=== PATIENT | male | born 1950 | race Caucasian/White ===

== ENCOUNTER 2019-05-01 01:52 | Inpatient (IN) | payer BC, MEDICARE ==
[2019-05-01 02:09] LABS: #Basophils 0.1 thou/uL (0.0-0.2); #Eosinphils 0.2 thou/uL (0.0-0.7); #Lymphocytes 1.5 thou/uL (1.20-3.40); #Monocytes 0.9 thou/uL (0.11-0.59); #Neutrophils 4.7 thou/uL (1.40-6.50); %Basophils 0.8 % (0.0-1.0); %Eosinophils 2.1 % (0.0-10.0); %Neutrophils 64.1 % (42.0-75.0); Hemoglobin 11.8 g/dL (14.0-18.0); Mean Corpuscular Hemoglobin 27.8 pg (27.0-31.0); Mean Corpuscular Volume 81.6 fL (78.0-98.0); Platelet Count 263 thou/uL (130-400); RBC Distribution Width 14.7 % (11.5-14.5); Red Blood Cell (RBC) Count 4.24 mill/uL (4.70-6.10); White Blood Cell (WBC) Count 7.3 thou/uL (4.8-10.8)
[2019-05-01 02:17] LABS: PTT 33.7 SEC (22.9-36.1); Prothrombin Time 12.8 SEC (12.0-14.7)
[2019-05-01 02:25] LABS: ALT (SGPT) 10 U/L (8-55); AST (SGOT) 16 U/L (5-34); Albumin 4.6 g/dL (3.4-4.8); Alkaline Phosphatase 135 U/L (40-150); Anion Gap 15 mmol/L (10-20); BUN (Urea Nitrogen) 24 mg/dL (8.4-25.7); CK (CPK) 63 U/L (30-200); Calc. Creatinine Clearance 0 mL/min (70-130); Calcium 10.8 mg/dL (7.8-10.44); Carbon Dioxide 24 mmol/L (23-31); Chloride 102 mmol/L (98-107); Estimated GFR-MDRD 37; Globulin 3.5 g/dL (2.4-3.5); Glucose 104 mg/dL (80-115); Potassium 3.9 mmol/L (3.5-5.1); Protein, Total 8.1 g/dL (5.8-8.1); Sodium 137 mmol/L (136-145)
[2019-05-01] MEDS ORDERED: Aspirin 300 MG Suppository ONE (03:06)
--- NOTE | 2019-05-01 07:26 | CT ---
PRELIMINARY REPORT/[facility]/EMERGENCY AFTER HOURS PROCEDURE: Addendum created by John Gutierrez MD on 05/01/2019 2:21 AM Central Time ([place] & [place]) THIS REPORT CONTAINS FINDINGS THAT MAY BE CRITICAL TO PATIENT CARE. The findings were verbally communicated via telephone conference with Dr. Stanton at 2:21 AM CDT on 05/01/2019. The findings were acknowledged and understood. Initial Report created on 05/01/2019 2:07 AM Central Time ([place] & [place]) EXAM: CT Head Without Contrast EXAM DATE/TIME: 05/01/2019 2:00 AM CLINICAL HISTORY: 68 years old, male; Speech disturbance; Patient HX: *level 1 stroke alert* m70, last seen normal 0130, reports slurred speech and right sided weakness TECHNIQUE: Imaging protocol: Computed tomography images of the head without contrast. Other technique: STROKE PROTOCOL was implemented. COMPARISON: No relevant prior studies available. FINDINGS: Brain: No evidence of acute large vessel infarction. No evidence of acute intracranial hemorrhage, ex traxial fluid or midline shift. Mild prominence of the cerebral sulci and ventricles. Cerebellum atrophic; otherwise, posterior fossa structures within normal limits. Ventricles: Normal. No ventriculomegaly. Bones/joints: Unremarkable. No acute fracture. Sinuses: Minimal right maxillary sinus fluid/soft tissue. Mastoid air cells: Visualized mastoid air cells are well aerated. No mastoid effusion. Soft tissues: Unremarkable. IMPRESSION: 1. No evidence of acute large vessel infarction. 2. No evidence of acute intracranial hemorrhage, extraaxial fluid or midline shift. 3. Mild cerebral atrophy. 4. Minimal right maxillary sinus fluid/soft tissue. ASSESSMENT: ASPECTS ([place] Stroke Program Early CT Score) is 10. Thank you for allowing us to participate in the care of your patient. Dictated and Authenticated by: John Gutierrez MD 05/01/2019 2:07 AM Central Time ([place] & [place]) FINAL REPORT: CT BRAIN WITHOUT CONTRAST: HISTORY: Level 1 stroke. Comparison: None. Findings: No acute hemorrhage or infarct. Moderate microvascular ischemic changes, chronic. Impression: Findings and impression are concordant with the preliminary report. Transcribed Date/Time: 05/01/2019 9:13 AM
--- NOTE | 2019-05-01 07:30 | CT ---
PRELIMINARY REPORT/[facility]/EMERGENCY AFTER HOURS PROCEDURE: Addendum created by John Gutierrez MD on 05/01/2019 2:42 AM Central Time ([place] & [place]) THIS REPORT CONTAINS FINDINGS THAT MAY BE CRITICAL TO PATIENT CARE. The findings were verbally communicated via telephone conference with Dr. Stanton at 2:21 AM CDT on 05/01/2019. The findings were acknowledged and understood. Initial Report created on 05/01/2019 2:36 AM Central Time ([place] & [place]) EXAM: CT Angiography Head Without And With Contrast EXAM DATE/TIME: 05/01/2019 2:03 AM CLINICAL HISTORY: 68 years old, male; Patient HX: *level 1 stroke alert* m70, last seen normal 0130, reports slurred speech and right sided weakness TECHNIQUE: Imaging protocol: Computed tomographic angiography images of the head without and with intravenous contrast using CT angiography protocol. Coronal and sagittal reformatted images were crea nila and reviewed. 3D rendering: MIP reconstructed images were created and reviewed. Other technique: STROKE PROTOCOL was implemented. COMPARISON: CT Brain WO Con 05/01/2019 2:00 AM FINDINGS: Right internal carotid artery: Unremarkable. Intracranial segment is patent with no significant stenosis. No aneurysm. Right anterior cerebral artery: Unremarkable. No occlusion or significant stenosis. No aneurysm. Right middle cerebral artery: Unremarkable. No occlusion or significant stenosis. No aneurysm. Right posterior cerebral artery: Unremarkable. No occlusion or significant stenosis. No aneurysm. Right vertebral artery: Unremarkable. No occlusion or significant stenosis. No aneurysm. Left internal carotid artery: Unremarkable. Intracranial segment is patent with no significant stenosis. No aneurysm. Left anterior cerebral artery: Unremarkable. No occlusion or significant stenosis. No aneurysm. Left middle cerebral artery: Unremarkable. No occlusion or significant stenosis. No aneurysm. Left posterior cerebral artery: Unremarkable. No occlusion or significant stenosis. No aneurysm. Left vertebral artery: Unremarkable. No occlusion or significant stenosis. No aneurysm. Basilar artery: Unremarkable. No occlusion or significant stenosis. No aneurysm. HEAD: Brain: Mild prominence of the cerebral sulci and ventricles. Impression new. No hemorrhage. No significant white matter disease. No edema. Ventricles: Normal. No ventriculomegaly. Bones/joints: Unremarkable. No acute fracture. Sinuses: Visualized sinuses are normal. No fluid levels. Mastoid air cells: Visualized mastoids are normal. No mastoid effusion. Soft tissues: Unremarkable. IMPRESSION: No large vessel occlusion or significant stenosis. No aneurysm. No evidence of acute large vessel infarction. No evidence of acute intracranial hemorrhage, extraaxial fluid or midline shift. Mild cerebral atrophy. ASSESSMENT: ASPECTS ([place] Stroke Program Early CT Score) is 10. EXAM: CT Angiography Neck With Contrast EXAM DATE/TIME: 05/01/2019 2:03 AM CLINICAL HISTORY: 68 years old, male; Patient HX: *level 1 stroke alert* m70, last seen normal 0130, reports slurred speech and right sided weakness TECHNIQUE: Imaging protocol: Axial computed tomographic angiography images of the neck with intravenous contrast using CT angiography protocol. Coronal and sagittal reformatted images were created and reviewed. 3D rendering: MIP reconstructed images were created and reviewed. COMPARISON: CT Brain WO Con 05/01/2019 2:00 AM FINDINGS: VASCULATURE: Right common carotid artery: Unremarkable. No stenosis. No dissection or occlusion. Right internal carotid artery: Mild atherosclerotic calcification involving proximal right ICA with l ess than 50% narrowing/stenosis. Right external carotid artery: Unremarkable. No occlusion or stenosis of the origin. Right vertebral artery: Unremarkable. No stenosis. No dissection or occlusion. Left common carotid artery: Unremarkable. No stenosis. No dissection or occlusion. Left internal carotid artery: Mild atherosclerotic calcification involving proximal left ICA with les s than 50% narrowing/stenosis. Left external carotid artery: Unremarkable. No occlusion or stenosis of the origin. Left vertebral artery: Unremarkable. No stenosis. No dissection or occlusion. Other vasculature: Left CVL tip in SVC. NECK: Bones/joints: Multilevel cervical spondylosis. Mild rightward curvature lower cervical spine. Soft tissues: Normal. No significant soft tissue swelling. IMPRESSION: No significant ICA stenosis. No dissection or occlusion. Mild atherosclerotic calcification involving proximal bilateral ICAs with less than 50% narrowing/stenosis. COMMENT: Reference per NASCET criteria for degree of stenosis: Mild: less than 50% stenosis. Moderate: 50-69% stenosis. Severe: 70-94% stenosis. Near occlusion: 95-99% stenosis. Thank you for allowing us to participate in the care of your patient. Dictated and Authenticated by: John Gutierrez MD 05/01/2019 2:36 AM Central Time ([place] & [place]) FINAL REPORT: CTA ANGIO HEAD WITH AND WITHOUT CONTRAST CT ANGIOGRAM NECK WITH CONTRAST: HISTORY: Stroke alert. COMPARISON: None. Findings: CT angiogram of the head and neck was performed after the intravenous administration of contrast. 3-D rendering provided. IMPRESSION: Findings and impression are concordant with the preliminary report. Transcribed Date/Time: 05/01/2019 9:25 AM
[2019-05-01 08:14] LABS: Cardiac Risk 6.8 (Less than 4.5)
[2019-05-01 10:56] VITALS: BMI 26.6
[2019-05-01 12:41] LABS: Hemoglobin A1c 5.4 % (4.0-6.0)
--- NOTE | 2019-05-01 12:42 | MRI ---
MRI OF BRAIN WITHOUT CONTRAST: 05/01/19 HISTORY: Speech disturbance, slurred speech, right sided weakness. FINDINGS: Correlation is made with the CT scan from earlier today. There is a small acute left MCA infarction with restricted diffusion and low signal on ADC maps. No h emorrhage, midline shift or abnormal extra-axial fluid collections are seen. There is focal hyperinte nsity in the right anterior periventricular white matter on FLAIR and T2 images consistent with old i nfarction. The ventricular size is appropriate and the basilar cisterns are patent. There is a mucous retention cyst versus polyp in the right maxillary sinus. IMPRESSION: Acute small left MCA infarction. POS: TPC
[2019-05-01] MEDS ORDERED: ISOVUE-370 76%-LOCM 1 ML ONE (15:57)
[2019-05-01] MEDS: Heparin 5,000 UNITS/ML VIAL SC SCH (20:53)
[2019-05-01] MEDS: Ferrous Sulfate 325 MG TAB PO SCH (20:53)
[2019-05-01] MEDS ORDERED: Atorvastatin Calcium 40 MG TAB PO SCH (21:00)
[2019-05-01] MEDS ORDERED: Rosuvastatin 10 MG TAB PO SCH (21:00)
--- NOTE | 2019-05-01 21:17 | CON ---
DATE OF CONSULTATION: 05/01/2019 IMPRESSION: 1. 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 2. Hypertension. 3. Diabetes. 4. Hypothyroidism. 5. Hyperlipidemia. PLAN: 1. Continue aspirin. 2. Add a statin. 3. Review echocardiogram. HISTORY OF PRESENT ILLNESS: Mr. Siu is a 68-year-old man who presented with slurred speech. He had no lateralized weakness or numbness. His MRI of the brain revealed a left MCA distribution stroke that was new. CT angiogram showed around 50% stenosis in both right and left carotids. His cholesterol ratio was 6.8. His symptoms improved somewhat. He does not smoke. PAST MEDICAL HISTORY: As listed above. ALLERGIES: NONE REPORTED. FAMILY HISTORY: Noncontributory. MEDICATION LIST: Reviewed. REVIEW OF SYSTEMS: A 10-system review of systems is unremarkable. PHYSICAL EXAMINATION: VITAL SIGNS: Have been stable. He is afebrile. HEENT: Pupils equal and reactive. Conjunctivae clear. Oropharynx clear. NECK: Supple. EXTREMITIES: No cyanosis, clubbing, or edema. NEUROLOGIC: He is alert and cooperative. There is some mild dysarthria present. There is a right facial droop of subtle quality. No focal weakness or numbness was elicited. No tremor. Dysmetria was present. He can walk independently. SUMMARY: A 68-year-old gentleman who presents with a thrombus in the left MCA distribution. He has some stenosis in the carotids that is at a nonsurgical level. His hyperlipidemia needs to be addressed. His echocardiogram is pending. We have to follow up with him as an outpatient. Job ID: [id number]
--- NOTE | 2019-05-02 01:13 | HP ---
CHIEF COMPLAINT: Right-sided facial droop. HISTORY OF PRESENT ILLNESS: The patient is 68-year-old male, who presents to the hospital with complaints of right-sided facial droop and slurred speech. The patient stated that he went to bed around 10:30 p.m., woke up around 1:20 a.m., felt that he had some generalized weakness and some weakness to his right upper extremity, and he also noticed right-sided facial droop and some slurred speech. He woke his up who also confirmed the slurring of speech and so, he was brought into the ER for further evaluation. Due to the unknown time of his symptoms, he was not given any tPA. In the ED, the patient underwent CT head and CTA which did not show any acute abnormalities and so, he was admitted to the hospital for further evaluation. PAST MEDICAL HISTORY: He has a history of diabetes. He has a history of hypertension and hyperlipidemia. He is not on any statin due to severe muscle aches and weakness. He has had a history of remote atrial fibrillation in the past and he has been to a information systems security manager, had a loop monitor for about 2 weeks and was cleared for atrial fibrillation and this contributed most likely to medication which was Claritin per patient. He also has a history of colorectal cancer status post radiation and chemotherapy with some spots on his spine and pelvis according to the patient's family. He has never had any strokes. PAST SURGICAL HISTORY: He has had partial colectomy with colostomy. ALLERGIES: NO KNOWN DRUG ALLERGIES. MEDICATIONS: He is on: 1. Metoprolol 25 mg daily. 2. Lisinopril 20 mg daily. 3. Metformin 850 b.i.d. 4. Iron 325 daily. 5. Celexa 20 mg daily. 6. Aspirin 81 mg daily. 7. Levothyroxine unknown dose daily. REVIEW OF SYSTEMS: All negative except for the ones mentioned above in the HPI. PHYSICAL EXAMINATION: VITAL SIGNS: Temperature of 98.2, 62, 20, 92% on room air, 135/77. GENERAL: He is awake, alert, and oriented x3. Does not appear in distress. HEENT: Normocephalic, atraumatic. No lymphadenopathy noted. Pupils are equal and reactive to light. CV: S1 and S2 present. No murmurs, rubs, or gallops. Regular rate and rhythm. LUNGS: Clear to auscultation. No rhonchi or wheezes noted. ABDOMEN: Soft and nontender. Bowel sounds are present x2. EXTREMITIES: No edema. Pedal pulses present x2. Neurovascular morales, he does have right-sided facial droop. He does have slurred speech. Otherwise, his [id number], [id number] is 5/5 bilateral upper extremity strength and bilateral lower extremity strength. Cerebellum test is also intact and the patient has been ambulating without any difficulties. SKIN: No cuts, lesions, or bruises noted. FAMILY HISTORY: Mother had hypertension, cardiac issues, and diabetes. Father was alcoholic. SOCIAL HISTORY: The patient denies any smoking, drug use, or drinking history. He is a full code. Lives with his . LABORATORY RESULTS: WBCs of 7.3, hemoglobin of 11.8, hematocrit of 34.6, platelets of 263. Chemistry; sodium of 137, potassium of 3.9, BUN of 24, creatinine 1.84, calcium of 10.8. His hemoglobin A1c is 5.4. His triglycerides were 213. Cholesterol was 219. His LDL was 144. His HDL is 32. As I mentioned, the CT head was negative and CTA did not show any acute stenosis. It just showed mild atherosclerotic disease. ASSESSMENT AND PLAN: The patient is 68-year-old male, who presents to the hospital with slurred speech. 1. Slurred speech, most likely secondary to stroke versus transient ischemic attack. The patient continues to still have the droopiness of his right side of the face and some slurred speech. We will get an MRI of the brain and also consult Neurology. I will add Plavix to his dose of medication and also I will put him on statin. For better, we will try different types of statin with low dose to see if he can tolerate it. Given his history of previous atrial fibrillation, I am not hesitant to most likely start him on a blood thinner once we get the MRI back and once he has been seen by Neurology. I have also ordered an echocardiogram. 2. Diabetes. We will check hemoglobin A1c and continue his home medications. 3. History of hypertension. We will continue his home medications. 4. Deep venous thrombosis prophylaxis. We will put the patient on SCDs. Job ID: [id number]
[2019-05-02] MEDS: Levothyroxine Sodium 100 MCG TAB PO SCH (05:08)
--- NOTE | 2019-05-02 06:02 | PDOC.EVN ---
Event Note - Event Note Event Note: spoke with cardiology in regards to pt's hx of one episode of afib in the past which was thought to be medication induced. He has a small Left MCA stroke and his cta not acute abnormalities. given his hx of one episode of afib and his CHADVAS score i would start pt on eliquis and continue asa if ok with neurolgy.
[2019-05-02] MEDS ORDERED: Rosuvastatin 10 MG TAB PO SCH (07:55)
[2019-05-02] MEDS ORDERED: Dextrose 50% Abboject 50 ML SYRINGE SLOW IVP PRN (07:55)
[2019-05-02] MEDS ORDERED: Dextrose 5% in Water 1,000 ML IV PRN (07:55)
[2019-05-02] MEDS ORDERED: HumaLOG 300 UNITS/3 ML VIAL SC PRN ×2 (07:55)
[2019-05-02] MEDS: Lisinopril 20 MG TAB PO SCH (09:56)
[2019-05-02] MEDS: Aspirin 81 mg Enteric Coated Tablet PO SCH (09:56)
[2019-05-02] MEDS: Citalopram 20 MG TAB PO SCH (09:56)
[2019-05-02] MEDS: Clopidogrel Bisulfate 75 MG TAB PO SCH (09:56)
[2019-05-02] MEDS: Ferrous Sulfate 325 MG TAB PO SCH ×2 (09:57→21:17)
[2019-05-02] MEDS: Heparin 5,000 UNITS/ML VIAL SC SCH ×2 (09:58→21:17)
--- NOTE | 2019-05-02 11:55 | PDOC.HOSPP ---
- Subjective Encounter Date: 05/02/19 Encounter Time: 07:00 Subjective: Patient seen and examined. No new complaints. No overnight events pt has nasal congestion today, he is overall doing well - Objective Vital Signs & Weight: Vital Signs (12 hours) Temp Pulse Pulse Pulse Resp BP BP 05/02/19 11:47 97.7 F 65 16 05/02/19 09:56 142/81 H 05/02/19 09:37 79 78 159/77 H 05/02/19 08:04 98.2 F 86 18 05/02/19 04:00 97.7 F 97 16 BP BP BP Pulse Ox 05/02/19 11:47 136/74 94 L 05/02/19 09:56 05/02/19 09:37 162/83 H 05/02/19 08:04 142/81 H 91 L 05/02/19 04:00 133/81 90 L Weight Weight 191 lb 3.2 oz I&O: 05/01/19 05/02/19 05/03/19 06:59 06:59 06:59 Intake Total 660 Balance 660 Result Diagrams: 05/01/19 02:01 05/01/19 02:01 Additional Labs: Accuchecks 05/02/19 05/01/19 05/01/19 05:48 20:09 16:45 POC Glucose 115 H 142 H 95 Radiology Reviewed by me: Yes EKG Reviewed by me: Yes ROS - Review of Systems Constitutional: denies: fever, chills, sweats, weakness, malaise, other Eyes: denies: pain, vision change, conjunctivae inflammation, eyelid inflammation, redness, other ENT: reports: nose congestion. denies: ear pain, ear discharge, nose pain, nose discharge, mouth pain, mouth swelling, throat pain, throat swelling, other Respiratory: denies: cough, dry, shortness of breath, hemoptysis, SOB with excertion, pleuritic pain, sputum, wheezing, other Cardiovascular: denies: chest pain, palpitations, orthopnea, paroxysmal noc. dyspnea, edema, light headedness, other Gastrointestinal: denies: nausea, vomitting, abdominal pain, diarrhea, constipation, melena, hematochezia, other Genitourinary: denies: dysuria, frequency, incontinence, hematuria, retention, other Musculoskeletal: denies: neck pain, shoulder pain, arm pain, back pain, hand pain, leg pain, foot pain, other Skin: denies: rash, lesions, radha, bruising, other - Medication Medications: Active Medications Generic Name Dose Route Start Last Admin Trade Name Anselmoq PRN Reason Stop Dose Admin Aspirin 81 mg 05/02/19 09:00 05/02/19 09:56 Ecotrin PO 81 mg DAILY GALDINO Administration Citalopram Hydrobromide 20 mg 05/02/19 09:00 05/02/19 09:56 Celexa PO 20 mg DAILY GALDINO Administration Clopidogrel Bisulfate 75 mg 05/02/19 09:00 05/02/19 09:56 Plavix PO 75 mg DAILY GALDINO Administration Ferrous Sulfate 325 mg 05/01/19 21:00 05/02/19 09:57 Feosol PO 325 mg BID GALDINO Administration Heparin Sodium (Porcine) 5,000 units 05/01/19 21:00 05/02/19 09:58 Heparin SC 5,000 units Q12HR GALDINO Administration Levothyroxine Sodium 100 mcg 05/02/19 06:00 05/02/19 05:08 Synthroid PO 100 mcg 0600 GALDINO Administration Lisinopril 20 mg 05/02/19 09:00 05/02/19 09:56 Zestril PO 20 mg DAILY GALDINO Administration Metoprolol Succinate 25 mg 05/02/19 09:00 05/02/19 09:56 Toprol Xl PO 25 mg DAILY GALDINO Administration - Exam NAD, awake alert Eye: PERRL, anicteric sclera ENT: normocephalic atraumatic, no oropharyngeal lesions Neck: supple, symmetric, no JVD Heart: RRR, no murmur, no gallops Respiratory: CTAB, no wheezes, no rales, no ronchi Gastrointestinal: soft, non-tender, non-distended, normal bowel sounds Extremities: no cyanosis, no clubbing, no edema Skin: normal turgor, no lesions Neurological: normal sensation to touch, no focal deficits, facial droop Musculoskeletal: normal tone, normal strength Psychiatric: normal affect, normal behavior, A&O x 3 Hosp A/P (1) Acute ischemic left MCA stroke Code(s): I63.512 - CEREB INFRC D/T UNSP OCCLS OR STENOS OF LEFT MID CEREB ART Status: Acute (2) Anemia, normocytic normochromic Code(s): D64.9 - ANEMIA, UNSPECIFIED Status: Chronic (3) Diabetes type 2, controlled Code(s): E11.9 - TYPE 2 DIABETES MELLITUS WITHOUT COMPLICATIONS Status: Chronic (4) Dyslipidemia Code(s): E78.5 - HYPERLIPIDEMIA, UNSPECIFIED Status: Chronic (5) Hypertension Code(s): I10 - ESSENTIAL (PRIMARY) HYPERTENSION Status: Chronic (6) Hypothyroidism Code(s): E03.9 - HYPOTHYROIDISM, UNSPECIFIED Status: Chronic - Plan old records reviewed/req, plan discussed w/ family, PT/OT stroke team evaluation home medication reconciled consider nestor on discharge, in that case DC plavix and continue asa add flonase nasal spray for nasal congestion medication reviewed as above symptomatic treatment echo today will consider DC tomorrow to home
[2019-05-02] MEDS: Fluticasone Propionate Nasal Spray 16 gm Bottle NASAL SCH (13:05)
[2019-05-02] MEDS ORDERED: Rosuvastatin 20 MG TAB PO SCH (21:00)
[2019-05-03 04:41] LABS: #Eosinphils 0.2 thou/uL (0.0-0.7); #Lymphocytes 0.8 thou/uL (1.20-3.40); #Monocytes 0.5 thou/uL (0.11-0.59); #Neutrophils 3.8 thou/uL (1.40-6.50); %Basophils 0.4 % (0.0-1.0); %Eosinophils 4.2 % (0.0-10.0); %Lymphocytes 14.8 % (21.0-51.0); %Monocytes 10.2 % (0.0-10.0); %Neutrophils 70.4 % (42.0-75.0); Hemoglobin 11.2 g/dL (14.0-18.0); Mean Corpuscular HGB CONC 33.4 g/dL (32.0-36.0); Mean Corpuscular Hemoglobin 27.6 pg (27.0-31.0); Mean Corpuscular Volume 82.8 fL (78.0-98.0); Platelet Count 219 thou/uL (130-400); RBC Distribution Width 14.5 % (11.5-14.5); Red Blood Cell (RBC) Count 4.07 mill/uL (4.70-6.10); White Blood Cell (WBC) Count 5.3 thou/uL (4.8-10.8)
[2019-05-03 05:00] LABS: Anion Gap 15 mmol/L (10-20); BUN (Urea Nitrogen) 23 mg/dL (8.4-25.7); Calc. Creatinine Clearance 50 mL/min (70-130); Calcium 10.2 mg/dL (7.8-10.44); Carbon Dioxide 23 mmol/L (23-31); Chloride 105 mmol/L (98-107); Estimated GFR-MDRD 41; Glucose 97 mg/dL (80-115); Potassium 3.8 mmol/L (3.5-5.1); Sodium 139 mmol/L (136-145)
[2019-05-03] MEDS: Levothyroxine Sodium 100 MCG TAB PO SCH (05:14)
[2019-05-03 07:39] VITALS: BP 157/72; TEMP 98
[2019-05-03] MEDS: Heparin 5,000 UNITS/ML VIAL SC SCH (08:56)
[2019-05-03] MEDS: Fluticasone Propionate Nasal Spray 16 gm Bottle NASAL SCH (08:57)
[2019-05-03] MEDS: Ferrous Sulfate 325 MG TAB PO SCH (08:58)
[2019-05-03] MEDS: Citalopram 20 MG TAB PO SCH (08:58)
[2019-05-03] MEDS: Aspirin 81 mg Enteric Coated Tablet PO SCH (08:58)
[2019-05-03] MEDS: Lisinopril 20 MG TAB PO SCH (08:59)
[2019-05-03] MEDS: Clopidogrel Bisulfate 75 MG TAB PO SCH (09:00)
[2019-05-03] MEDS ORDERED: Fluticasone Propionate Nasal Spray 16 gm Bottle NASAL SCH (09:00)
--- NOTE | 2019-05-03 11:06 | DIS ---
DATE OF ADMISSION: 05/01/2019 DATE OF DISCHARGE: 05/03/2019 PRIMARY CARE PHYSICIAN: Dr. Chato Black. DISCHARGE DISPOSITION: Home with home health. PRIMARY DISCHARGE DIAGNOSIS: Left MCA stroke. SECONDARY DISCHARGE DIAGNOSES: 1. Hypothyroidism. 2. Hypertension. 3. Dyslipidemia. 4. Diabetes, type 2. 5. Normocytic normochromic anemia. PRIMARY PROCEDURE/OPERATION: None. RADIOLOGICAL INVESTIGATION: CT brain on admission showed no acute process. CT [place] angiography, negative for any occlusion. MRI brain showed left MCA territory small infarct. Echocardiography showed normal EF without any vegetation or clot. SIGNIFICANT LABORATORY DATA: WBC 5.3, hemoglobin 11.2, platelets 219. INR 1.0. BMP; sodium 139, potassium 3.8, BUN 23, creatinine 1.68, calcium 10.2. LDL 144. LFT, normal. Hemoglobin A1c 5.4. DISCHARGE MEDICATIONS: 1. Aspirin 81 mg p.o. daily. 2. Plavix 75 mg p.o. daily. 3. Celexa 20 mg p.o. daily. 4. Ferrous sulfate 325 mg b.i.d. 5. Synthroid 100 mcg p.o. daily. 6. Lisinopril 20 mg daily. 7. Metformin 850 mg b.i.d. 8. Metoprolol-XL 25 mg p.o. daily. 9. Crestor 20 mg p.o. at bedtime. CONTRAINDICATIONS: Please note that Dr. García wrote event note that the patient had one episode of atrial fibrillation, but I could not see any evidence of in our hospital record, as well as the patient does not remember any episode of atrial fibrillation in the past. The patient does not report any previous history of atrial fibrillation, and while in our hospital, we did not see any evidence of atrial fibrillation as well and that is why we decided to send him on dual antiplatelet therapy. This patient will need outpatient Cardiology followup and possibly Holter monitoring, and if we have confirmed evidence of atrial fibrillation, then the patient will benefit from a chronic anticoagulation therapy. At this point, the patient does not need any chronic anticoagulation. CODE STATUS: Full code. INPATIENT POULTRY DRESSER: Dr. Clifton Flaherty, neurologist was following while in hospital. TEST RESULTS PENDING ON DISCHARGE: None. ALLERGIES: NO KNOWN DRUG ALLERGIES. DISCHARGE PLAN: Posthospital, the patient is instructed to follow up with primary care physician, and primary care physician requested to give referral to Cardiology for possible evaluation with Holter monitoring to rule out any arrhythmia. The patient is also instructed to follow up with Neurology as well. HOSPITAL COURSE: A 68-year-old male with above-mentioned medical problems, who was admitted by Dr. Janine García, please see her H and P for further details. The patient was presented with acute onset of slurred speech and facial droop on the right side without any weakness or paresthesia. Initial evaluation in the emergency room with CT brain and CT [place] was negative. The patient was admitted to Stroke Floor. We did MRI, which showed acute left MCA small infarct. Neurology saw this patient and they recommended to continue antiplatelet therapy. The patient's medication will be continued while in the hospital as well as on discharge. He did not have any motor or sensory weakness while in the hospital and he was doing wonderful with Physical Therapy, Occupational Therapy, and a Stroke Team evaluation. At this point, the patient is being discharged home with the above-mentioned medication. His telemetry remained unremarkable without any arrhythmia. Echocardiography, unremarkable. We have discussed with the patient and family member about followup with Cardiology for Holter monitoring to rule out any arrhythmias. At this point, the patient is medically stable for discharge home with home health. I have seen and examined the patient at bedside today. PHYSICAL EXAMINATION: VITAL SIGNS: Currently temperature 98.0, pulse 56, blood pressure 157/72. Weight 191 pounds. Saturation 96% on room air. GENERAL: The patient is currently alert, awake, in no acute distress. Mild facial droop noted. LUNGS: Clear to auscultation without any rhonchi or rales. CARDIAC: S1 and S2, regular without any murmur. No gallop. No rub. ABDOMEN: Soft and benign without any tenderness. EXTREMITIES: No edema. NEUROLOGIC: Nonfocal examination other than mild facial droop noted. All new medication prescription sent to his pharmacy. Job ID: [id number]
== END 2019-05-03 11:51 | disposition home health service (06) | DRG 66 ==
LOC: ERS 01:52 → ERHOLD 02:40 → 2SE 09:56 → OBSVTOIN 14:42
PROVIDERS: ADMIT Family Medicine; ATTEND Family Medicine
DX: I63.512 Cerebral infarction due to unspecified occlusion or stenosis of left middle cerebral artery (principal); R47.01 Aphasia; R29.810 Facial weakness; R29.705 NIHSS score 5; I10 Essential (primary) hypertension; E03.9 Hypothyroidism, unspecified; I48.91 Unspecified atrial fibrillation; D64.9 Anemia, unspecified; E11.9 Type 2 diabetes mellitus without complications; E78.5 Hyperlipidemia, unspecified; Z90.49 Acquired absence of other specified parts of digestive tract; Z92.3 Personal history of irradiation; Z92.21 Personal history of antineoplastic chemotherapy; Z79.84 Long term (current) use of oral hypoglycemic drugs; Z85.038 Personal history of other malignant neoplasm of large intestine; Z93.3 Colostomy status; Z79.899 Other long term (current) drug therapy; Z79.82 Long term (current) use of aspirin; R47.1 Dysarthria and anarthria
CPT/HCPCS: 36415; 36416; 70450; 70496; 70498; 70551; 80048; 80053; 80061; 82550; 83036; 84484; 85025; 85610; 85730; 93005; 93306; J1644; Q9966

== ENCOUNTER 2022-04-07 11:45 | Outpatient (CLI) | payer BC | END 2022-04-07 11:46 | disposition home or self-care (01) | LOC: PET 11:45 | PROVIDERS: ATTEND Internal Medicine Hematology & Oncology | DX: C43.39 Malignant melanoma of other parts of face (principal); Z85.038 Personal history of other malignant neoplasm of large intestine | CPT/HCPCS: 78816; A9552 ==

== ENCOUNTER 2022-10-30 09:09 | Outpatient (CLI) | payer BC ==
[2022-10-30] MEDS ORDERED: Iopamidol-370 76% 500 ML 1 ML ONE (10:26)
== END 2022-10-30 09:10 | disposition home or self-care (01) ==
LOC: BICCT 09:09
PROVIDERS: ATTEND Internal Medicine Hematology & Oncology
DX: C43.39 Malignant melanoma of other parts of face (principal); Z85.038 Personal history of other malignant neoplasm of large intestine
CPT/HCPCS: 71260; 74177

== ENCOUNTER 2023-04-27 08:32 | Outpatient (CLI) | payer BC ==
[2023-04-27] MEDS ORDERED: Iopamidol-370 76% 500 ML MDV (1 ML CHARGE) ONE (13:57)
== END 2023-04-27 08:33 | disposition home or self-care (01) ==
LOC: BICCT 08:32
PROVIDERS: ATTEND Internal Medicine Hematology & Oncology
DX: C43.39 Malignant melanoma of other parts of face (principal); C18.9 Malignant neoplasm of colon, unspecified
CPT/HCPCS: 71260; 74177; 82565; Q9967

== ENCOUNTER 2024-05-06 07:39 | Outpatient (CLI) | payer BC ==
[2024-05-06] MEDS ORDERED: Iopamidol 370 76% 100 ML VIAL ONE (13:01)
== END 2024-05-06 07:40 | disposition home or self-care (01) ==
LOC: BICCT 07:39
PROVIDERS: ATTEND Internal Medicine Hematology & Oncology
DX: C43.39 Malignant melanoma of other parts of face (principal)
CPT/HCPCS: 71260; 74177; 82565; Q9967

== ENCOUNTER 2024-09-06 18:07 | Inpatient (IN) | payer BC, MEDICARE ==
[~2024-09-06 18:07] MED LIST: Iopamidol-370 76% 500 ML MDV (1 ML CHARGE) ONE
[2024-09-06 18:40] LABS: #Basophils 0.04 10x3/uL (0.0-0.2); %Basophils 0.6 % (0.0-1.0); %Eosinophils 3.4 % (0.0-10.0); %Lymphocytes 15.5 % (21.0-51.0); %Monocytes 8.1 % (0.0-10.0); %Neutrophils 72.2 % (42.0-75.0); Hemoglobin 12.1 g/dL (14.0-18.0); Mean Corpuscular HGB CONC 32.7 g/dL (32.0-36.0); Mean Corpuscular Hemoglobin 29.7 pg (27.0-31.0); Mean Corpuscular Volume 90.9 fL (78.0-98.0); Mean Platelet Volume 10.8 fL (7.4-10.4); Platelet Count 199 10x3/uL (130-400); Red Blood Cell (RBC) Count 4.07 mill/uL (4.70-6.10)
[2024-09-06] MEDS ORDERED: dilTIAZem 125 MG/25 ML SDV ONE (18:59)
[2024-09-06] MEDS ORDERED: dilTIAZem 25 MG/5 ML VIAL ONE (18:59)
[2024-09-06 19:01] LABS: ALT (SGPT) 17 U/L (8-55); AST (SGOT) 18 U/L (5-34); Albumin 4.1 g/dL (3.4-4.8); Alkaline Phosphatase 104 U/L (40-110); Anion Gap 15 mmol/L (10-20); BUN (Urea Nitrogen) 31 mg/dL (8.4-25.7); Calc. Creatinine Clearance 0 mL/min (70-130); Calcium 9.3 mg/dL (7.8-10.44); Carbon Dioxide 21 mmol/L (23-31); Chloride 106 mmol/L (98-107); Estimated GFR 30; Globulin 3.4 g/dL (2.4-3.5); Glucose 197 mg/dL (83-110); Magnesium 1.9 mg/dL (1.6-2.6); Potassium 4.2 mmol/L (3.5-5.1); Protein, Total 7.5 g/dL (5.8-8.1); Sodium 138 mmol/L (136-145)
[2024-09-06 19:02] LABS: Troponin I 0.016 ng/mL (< 0.028)
[2024-09-06] MEDS ORDERED: Furosemide 40 MG (4 mL) VIAL ONE (20:17)
[2024-09-06 20:19] LABS: INR-International Normal Ratio 1.2; PTT 34.5 sec (22.9-36.1); Prothrombin Time 15.1 sec (12.0-14.7)
[2024-09-06] MEDS ORDERED: Senokot S 8.6-50 MG TAB PO PRN (21:18)
[2024-09-06] MEDS ORDERED: Acetaminophen 325 MG TAB PO PRN (21:18)
[2024-09-06] MEDS ORDERED: Glucagon 1 MG/ML KIT IM PRN (21:27)
[2024-09-06] MEDS ORDERED: Dextrose 50% Abboject 50 ML SYRINGE SLOW IVP PRN (21:27)
[2024-09-06] MEDS ORDERED: Dextrose 5% in Water 1,000 ML IV PRN (21:27)
[2024-09-06 22:15] LABS: Troponin I Less than 0.010 ng/mL (< 0.028)
[2024-09-06 23:45] VITALS: BMI 30.2
[2024-09-07] MEDS ORDERED: Apixaban 2.5 MG TAB PO SCH (00:15)
[2024-09-07] MEDS: Apixaban 5 MG TAB PO SCH ×2 (00:18→09:27)
[2024-09-07 01:40] LABS: Troponin I 0.014 ng/mL (< 0.028)
[2024-09-07] MEDS: Magnesium 2 GM/50 ML(in water) 2 GM in Premix 1 BAG IVPB SCH (03:14)
[2024-09-07 04:10] LABS: #Basophils 0.03 10x3/uL (0.0-0.2); %Basophils 0.4 % (0.0-1.0); %Eosinophils 2.2 % (0.0-10.0); %Lymphocytes 12.8 % (21.0-51.0); %Monocytes 9.8 % (0.0-10.0); %Neutrophils 74.1 % (42.0-75.0); Hematocrit 33.2 % (42.0-52.0); Hemoglobin 10.8 g/dL (14.0-18.0); Mean Corpuscular HGB CONC 32.5 g/dL (32.0-36.0); Mean Corpuscular Hemoglobin 29.4 pg (27.0-31.0); Mean Corpuscular Volume 90.5 fL (78.0-98.0); Mean Platelet Volume 10.7 fL (7.4-10.4); Platelet Count 188 10x3/uL (130-400); RBC Distribution Width 14.1 % (11.5-14.5); Red Blood Cell (RBC) Count 3.67 mill/uL (4.70-6.10)
[2024-09-07 04:43] LABS: Anion Gap 14 mmol/L (10-20); BUN (Urea Nitrogen) 29 mg/dL (8.4-25.7); Calc. Creatinine Clearance 43 mL/min (70-130); Calcium 9.3 mg/dL (7.8-10.44); Carbon Dioxide 20 mmol/L (23-31); Chloride 108 mmol/L (98-107); Estimated GFR 34; Glucose 185 mg/dL (83-110); Potassium 3.7 mmol/L (3.5-5.1); Sodium 138 mmol/L (136-145)
[2024-09-07 07:22] LABS: Troponin I Less than 0.010 ng/mL (< 0.028)
[2024-09-07] MEDS: Famotidine 20 MG TAB PO SCH (09:27)
[2024-09-08 08:26] LABS: #Basophils 0.03 10x3/uL (0.0-0.2); %Basophils 0.5 % (0.0-1.0); %Eosinophils 3.1 % (0.0-10.0); %Lymphocytes 12.7 % (21.0-51.0); %Monocytes 9.8 % (0.0-10.0); %Neutrophils 73.6 % (42.0-75.0); Hematocrit 34.9 % (42.0-52.0); Hemoglobin 11.5 g/dL (14.0-18.0); Mean Corpuscular Volume 91.1 fL (78.0-98.0); Mean Platelet Volume 10.8 fL (7.4-10.4); Platelet Count 189 10x3/uL (130-400); RBC Distribution Width 14.1 % (11.5-14.5); Red Blood Cell (RBC) Count 3.83 mill/uL (4.70-6.10)
[2024-09-08 08:45] LABS: Anion Gap 15 mmol/L (10-20); BUN (Urea Nitrogen) 26 mg/dL (8.4-25.7); Calc. Creatinine Clearance 51 mL/min (70-130); Calcium 9.5 mg/dL (7.8-10.44); Carbon Dioxide 19 mmol/L (23-31); Chloride 107 mmol/L (98-107); Estimated GFR 42; Glucose 150 mg/dL (83-110); Sodium 137 mmol/L (136-145)
[2024-09-08] MEDS: dilTIAZem 30 MG TAB PO SCH (14:33)
[2024-09-08] MEDS: Insulin Lispro 100 UNIT/ML 10 ML VIAL SC PRN (17:56)
[2024-09-08] MEDS: dilTIAZem 125 MG in Sodium Chloride 0.9% 100 ML IVPB SCH (18:05)
[2024-09-09 04:29] LABS: #Basophils 0.05 10x3/uL (0.0-0.2); %Basophils 0.8 % (0.0-1.0); %Lymphocytes 11.8 % (21.0-51.0); %Monocytes 10.8 % (0.0-10.0); %Neutrophils 72.3 % (42.0-75.0); Hematocrit 36.2 % (42.0-52.0); Mean Corpuscular HGB CONC 30.4 g/dL (32.0-36.0); Mean Corpuscular Hemoglobin 29.1 pg (27.0-31.0); Mean Corpuscular Volume 95.8 fL (78.0-98.0); Mean Platelet Volume 10.5 fL (7.4-10.4); Platelet Count 174 10x3/uL (130-400); RBC Distribution Width 14.1 % (11.5-14.5); Red Blood Cell (RBC) Count 3.78 mill/uL (4.70-6.10)
[2024-09-09 04:48] LABS: Anion Gap 15 mmol/L (10-20); BUN (Urea Nitrogen) 28 mg/dL (8.4-25.7); Calc. Creatinine Clearance 50 mL/min (70-130); Calcium 9.3 mg/dL (7.8-10.44); Carbon Dioxide 17 mmol/L (23-31); Chloride 108 mmol/L (98-107); Estimated GFR 42; Glucose 152 mg/dL (83-110); Sodium 136 mmol/L (136-145)
[2024-09-09] MEDS: dilTIAZem CD 180 MG CAP PO SCH (08:48)
[2024-09-09 12:06] VITALS: BP 140/87; TEMP 97.8
== END 2024-09-09 14:36 | disposition home or self-care (01) | DRG 309 ==
LOC: ERS 18:07 → 2NO 20:00
PROVIDERS: ADMIT Internal Medicine; ATTEND Family Medicine
DX: I48.91 Unspecified atrial fibrillation (principal); I13.0 Hypertensive heart and chronic kidney disease with heart failure and stage 1 through stage 4 chronic kidney disease, or unspecified chronic kidney disease; I24.9 Acute ischemic heart disease, unspecified; E11.22 Type 2 diabetes mellitus with diabetic chronic kidney disease; E03.9 Hypothyroidism, unspecified; N18.9 Chronic kidney disease, unspecified; R59.1 Generalized enlarged lymph nodes; E78.5 Hyperlipidemia, unspecified; R00.1 Bradycardia, unspecified; F32.A Depression, unspecified; Z85.038 Personal history of other malignant neoplasm of large intestine; Z90.49 Acquired absence of other specified parts of digestive tract; Z93.3 Colostomy status; Z85.820 Personal history of malignant melanoma of skin; Z79.01 Long term (current) use of anticoagulants; Z79.82 Long term (current) use of aspirin; Z79.899 Other long term (current) drug therapy; Z79.890 Hormone replacement therapy; Z92.3 Personal history of irradiation; Z92.21 Personal history of antineoplastic chemotherapy; Z86.73 Personal history of transient ischemic attack (TIA), and cerebral infarction without residual deficits; K21.9 Gastro-esophageal reflux disease without esophagitis
CPT/HCPCS: 36415; 36416; 71045; 71275; 80048; 80053; 83605; 83735; 83880; 84443; 84484; 85025; 85610; 85730; 87040; 93005; 96365; 96366; 96375; 96376; J1815; J1940; J3475; Q9967

== ENCOUNTER 2025-05-15 09:09 | Outpatient (CLI) | payer BC | END 2025-05-15 09:10 | disposition home or self-care (01) | LOC: BICULT 09:09 | PROVIDERS: ATTEND Internal Medicine Nephrology | DX: N18.4 Chronic kidney disease, stage 4 (severe) (principal) | CPT/HCPCS: 76770 ==